=== PATIENT | female | born 1945 | race Caucasian/White ===

== ENCOUNTER 2019-05-14 14:07 | Outpatient (CLI) | payer MEDICARE, OTHER ==
[2019-05-14 14:49] LABS: CLARITY,URINE CLEAR (Clear); COLOR,URINE YELLOW (Yellow); GLUCOSE, URINE NEGATIVE (Neg); KETONES,URINE NEGATIVE (Neg); LEUKOCYTE ESTERASE ,URINE NEGATIVE (Neg); NITRITES, URINE NEGATIVE (Neg); OCCULT BLOOD,URINE NEGATIVE (Neg); PH,URINE 5.5 (4.8-8.0); PROTEIN,URINE NEGATIVE (Neg); UROBILINOGEN,URINE 0.2 E.U/dL (0.2-1.0)
[2019-05-14 14:53] LABS: UA COLLECTION TYPE CLN CATCH MIDSTREAM
[2019-05-14 14:57] LABS: BASOPHILS # (AUTO) 0.1 X10'3 (0-0.2); EOSINOPHILS # (AUTO) 0.1 X10'3 (0-0.9); EOSINOPHILS % (AUTO) 1.8 % (0-6); HEMATOCRIT 25.3 % (35.0-45.0); HEMOGLOBIN 7.8 g/dl (12.0-16.0); LYMPHOCYTES # (AUTO) 1.7 X10'3 (1.1-4.8); LYMPHOCYTES % (AUTO) 24.2 % (21-51); MEAN CORPUSCULAR HEMOGLOBIN 22.8 PG (27.0-31.0); MEAN CORPUSCULAR HGB CONC 30.7 g/dL (33.0-36.5); MEAN CORPUSCULAR VOLUME 74.3 FL (78-98); MEAN PLATELET VOLUME 7.4 FL (7.4-10.4); MONOCYTES # (AUTO) 0.5 X10'3 (0-0.9); MONOCYTES % (AUTO) 7.2 % (2-12); NEUTROPHILS # (AUTO) 4.6 X10'3 (1.8-7.7); NEUTROPHILS % (AUTO) 65.8 % (42-75); PLATELET COUNT 464 X10'3 (140-440); RED BLOOD COUNT 3.41 X10'6 (4.20-5.60)
[2019-05-14 15:19] LABS: ANISOCYTOSIS 2+; HYPOCHROMASIA 1+; MICROCYTOSIS 1+; PLATELET ESTIMATE INCREASED
== END 2019-05-14 23:59 | disposition home or self-care (01) ==
LOC: LAB 14:07
PROVIDERS: ATTEND Family Medicine
DX: D50.8 Other iron deficiency anemias (principal); R53.83 Other fatigue; Z76.89 Persons encountering health services in other specified circumstances; Z87.891 Personal history of nicotine dependence
CPT/HCPCS: 36415; 81003; 84439; 84443; 85025

== ENCOUNTER 2021-08-12 06:17 | Inpatient (IN) | payer MEDICARE, OTHER ==
[2021-08-05 14:55] LABS: BASOPHILS % (AUTO) 0.8 % (0-1); EOSINOPHILS # (AUTO) 0.1 X10'3 (0-0.9); EOSINOPHILS % (AUTO) 1.8 % (0-6); LYMPHOCYTES # (AUTO) 1.8 X10'3 (1.1-4.8); LYMPHOCYTES % (AUTO) 28.9 % (21-51); MEAN CORPUSCULAR HEMOGLOBIN 25.2 PG (27.0-31.0); MEAN CORPUSCULAR HGB CONC 32.4 g/dL (33.0-36.5); MEAN CORPUSCULAR VOLUME 77.7 FL (78-98); MEAN PLATELET VOLUME 6.9 FL (7.4-10.4); MONOCYTES # (AUTO) 0.5 X10'3 (0-0.9); MONOCYTES % (AUTO) 8.8 % (2-12); NEUTROPHILS # (AUTO) 3.7 X10'3 (1.8-7.7); NEUTROPHILS % (AUTO) 59.7 % (42-75); PRE OP HEMATOCRIT 29.9 % (35.0-45.0); PRE OP PLATELET COUNT 425 X10'3 (140-440); RED BLOOD COUNT 3.84 X10'6 (4.20-5.60); RED CELL DISTRIBUTION WIDTH 20.2 % (11.5-14.5)
[2021-08-05 14:56] LABS: CLARITY,URINE CLEAR (Clear); COLOR,URINE YELLOW (Yellow); GLUCOSE, URINE NEGATIVE (Neg); KETONES,URINE NEGATIVE (Neg); LEUKOCYTE ESTERASE ,URINE NEGATIVE (Neg); NITRITES, URINE NEGATIVE (Neg); OCCULT BLOOD,URINE NEGATIVE (Neg); PROTEIN,URINE NEGATIVE (Neg); UA COLLECTION TYPE CLN CATCH MIDSTREAM; UROBILINOGEN,URINE 0.2 E.U/dL (0.2-1.0)
[2021-08-05 14:59] LABS: PRE OP HEMOGLOBIN 9.7 g/dL (12.0-16.0)
[2021-08-05 15:06] LABS: ALBUMIN 3.8 G/DL (3.4-5.0); ALBUMIN/GLOBULIN RATIO 1.1 (1.1-1.5); ALKALINE PHOSPHATASE 92 IU/L (46-116); BLOOD UREA NITROGEN 14 MG/DL (7-18); BUN/CREATININE RATIO 15.7 (6.6-38.0); CALCIUM 9.8 MG/DL (8.5-10.1); CHLORIDE 105 MMOL/L (99-107); CREATININE 0.89 MG/DL (0.40-0.90); PRE OP ALT 17 U/L (30-65); PRE OP ANION GAP 4 (8-16); PRE OP AST 15 U/L (10-37); PRE OP BILIRUB, TOTAL 0.3 MG/DL (0.0-1.0); PRE OP GLUCOSE 92 MG/DL (70-104); PRE OP SODIUM 136 MMOL/L (135-145); TOTAL CARBON DIOXIDE 26.9 MMOL/L (24-32); TOTAL PROTEIN 7.3 G/DL (6.4-8.2); eGFR 61 ML/MIN
[2021-08-05 15:13] LABS: ANISOCYTOSIS 3+; HYPOCHROMASIA 1+; MICROCYTOSIS 1+; PLATELET ESTIMATE NORMAL; TEAR DROP CELLS FEW
[2021-08-05 15:14] LABS: ELLIPTOCYTES 1+
[2021-08-12] VITALS (20 sets, daily range): BP systolic 93–135; BP diastolic 42–105
[~2021-08-12] VITALS: Ht 144.8 cm; Wt 59.0 kg
[~2021-08-12 06:17] MED LIST: AMLO5TAB PO; BACL10TA PO; ESCI20TA39 PO; HYDR-3972 PO; LEVO88TA7 PO; LOSA100T57 PO; cefazolin/dext.iso 2gm/50ml IV ONE; famotidine 20mg tablet PO ONE
[2021-08-12] MEDS: ringers solution, lacted 1,000 ML IV SCH ×2 (07:27→23:52)
[2021-08-12] MEDS ORDERED: ASPI-1397 PO (07:37)
[2021-08-12] MEDS ORDERED: CEPH-585 PO (07:37)
[2021-08-12] MEDS ORDERED: ERGO500093 PO (07:37)
[2021-08-12] MEDS ORDERED: morphine 2 MG/ML inj. syringe IV PRN (10:05)
[2021-08-12] MEDS ORDERED: morphine 4 MG/ML inj SYRINge IV PRN (10:05)
[2021-08-12] MEDS ORDERED: proCHLORperazine 10 MG/2 ml inj IV PRN (10:05)
[2021-08-12] MEDS ORDERED: ondansetron/PF 4mg/2ml inj IV PRN ×2 (10:05→12:10)
[2021-08-12] MEDS ORDERED: meperidine/PF 25mg/ml syringe IV PRN ×3 (10:05)
[2021-08-12] MEDS ORDERED: ringers solution, lacted 1,000 ML IV SCH (10:05)
[2021-08-12] MEDS ORDERED: bacitracin 15gm ointment TP ONE (10:39)
[2021-08-12] MEDS ORDERED: fentaNYL/PF 50MCG/1 ML 2ML syringe ONE (10:41)
[2021-08-12] MEDS ORDERED: MIDAZolam 1 MG/ML 5ML VIAL ONE (10:41)
[2021-08-12] MEDS ORDERED: ROPIVAcaine 0.5% (5mg/ml) 30ml vial ONE (12:02)
[2021-08-12] MEDS ORDERED: diphenhydrAMINE 25mg capsule PO PRN (12:10)
[2021-08-12] MEDS ORDERED: magnesium hydroxide 30ml (MOM) UD suspension PO PRN (12:10)
[2021-08-12] MEDS ORDERED: mag hydrox/Alum hydrox/simeth 30ml oral suspension PO PRN (12:10)
[2021-08-12] MEDS ORDERED: acetaminophen 325mg tablet PO PRN (12:10)
--- NOTE | 2021-08-12 12:37 | NUR ---
Received from OR via [facility] , accompanied by Anesthesiologist KAVITA and report given by Anesthesiolgist. PATIENT WITH 20GPIV IN RIGHT HAND. PATIENT WITH RIGHT FOOT IN BRACE THAT IS CDI. + CAP REFILL TO TOES. ALL PWD, SENSATION LEVEL L2 FOR RIGHT LEG AND T 10 TO LEFT SIDE. Addendum: 08/12/21 at 1251 by Joec Foley RN, RN Amended: Links added.
[2021-08-12] MEDS ORDERED: HYDROcodone/acetaminophen 10/325mg tab PO PRN (13:45)
[2021-08-12] MEDS ORDERED: ergocalciferol (vit D2) capsule 50,000 UNITS (1,250mcg) CAPSULE PO SCH (13:45)
--- NOTE | 2021-08-12 13:47 | NUR ---
MD WALLS CALLED 2' EXTREME RESTLESS LEG ACCORDING TO PATIENT . PATIENT GYRATING AND SHAKING BLE'S DESPITE SPINAL ANESTHESIA. PATIENT STATES THAT THIS IS NORMAL FOR HER. VERBAL ORDERS FOR MIRAPEX RECEIVED FROM MD WALLS. Addendum: 08/12/21 at 1351 by Joce Foley RN, RN Amended: Links added.
--- NOTE | 2021-08-12 14:17 | NUR ---
TRANSFER: DRESSINGS INTACT. BED LOW, CALL LIGHT PRESENT AND 2 RAILS UP. RN PRESENT TO ACCEPT CARE OF PATIENT HAS MET ALL CRITERIA FOR TRANSFER TO THE SURGICAL/[facility]/PCU/ORTHO/ICU FLOOR. VSS. PATIENT AND REPORT HAS BEEN CALLED. ALL QUESTIONS ANSWERED TO ACCEPTING HUEY AGUILLON RN WHOM WAS PRESENT TO ACCEPT CARE OF PATIENT. 2 PERSON PASSIVE TRANSFER TO BED FROM [facility]. Addendum: 08/12/21 at 1450 by Joce Foley RN RN Amended: Links added.
--- NOTE | 2021-08-12 14:23 | NUR ---
I have received report from HUEY Hobson in recovery and had the opportunity to ask questions and assume patient care.
[2021-08-12] MEDS: cephalexin 500mg capsule PO SCH ×2 (17:01→20:07)
[2021-08-12] MEDS: HYDROcodone/acetaminophen 10/325mg tab PO PRN (17:01)
--- NOTE | 2021-08-12 18:44 | NUR ---
Problems reprioritized. Patient report given, questions answered & plan of care reviewed with HUEY Baugh.
[2021-08-12] MEDS ORDERED: potassium Cl 20 mEq SR tablet PO PRN ×2 (18:55)
[2021-08-12] MEDS ORDERED: magnesium 4gm in 100ml NS 100 ML IV PRN (18:55)
[2021-08-12] MEDS ORDERED: potassium Cl 40MEQ/1/2NS 520ml 520 ML IV PRN (18:55)
[2021-08-12] MEDS ORDERED: magnesium Cl slow-release 64mg tablet PO PRN (18:55)
[2021-08-12] MEDS: K and/or MAG REPLACEMENT MC SCH (20:00)
[2021-08-12] MEDS: docusate sod 100mg capsule PO SCH (20:07)
[2021-08-12] MEDS: pramipexole 1mg tablet PO SCH (20:07)
[2021-08-12] MEDS: baclofen 10mg tablet PO SCH (20:07)
[2021-08-12] MEDS: sodium ferric gluc complex inj 125 MG in normal saline 100ml IV soln 100 ML IV SCH (20:08)
[2021-08-13] VITALS: BP 120/79
[2021-08-13] MEDS: HYDROcodone/acetaminophen 10/325mg tab PO PRN ×5 (01:52→23:11)
[2021-08-13 06:09] LABS: BASOPHILS % (AUTO) 0.2 % (0-1); EOSINOPHILS % (AUTO) 0 % (0-6); HEMATOCRIT 26.4 % (35.0-45.0); HEMOGLOBIN 8.7 g/dl (12.0-16.0); LYMPHOCYTES # (AUTO) 1.1 X10'3 (1.1-4.8); LYMPHOCYTES % (AUTO) 13.6 % (21-51); MEAN CORPUSCULAR HEMOGLOBIN 25.5 PG (27.0-31.0); MEAN CORPUSCULAR HGB CONC 32.9 g/dL (33.0-36.5); MEAN CORPUSCULAR VOLUME 77.8 FL (78-98); MONOCYTES # (AUTO) 0.6 X10'3 (0-0.9); MONOCYTES % (AUTO) 7.8 % (2-12); NEUTROPHILS # (AUTO) 6.1 X10'3 (1.8-7.7); NEUTROPHILS % (AUTO) 78.4 % (42-75); PLATELET COUNT 438 X10'3 (140-440); RED BLOOD COUNT 3.39 X10'6 (4.20-5.60); RED CELL DISTRIBUTION WIDTH 19.8 % (11.5-14.5); WHITE BLOOD COUNT 7.8 X10'3 (4.5-11.0)
[2021-08-13 06:19] LABS: ALANINE AMINOTRANSFERASE 17 U/L (12-78); ALBUMIN 3.2 G/DL (3.4-5.0); ALKALINE PHOSPHATASE 93 IU/L (46-116); ANION GAP 9 (8-16); ASPARTATE AMINO TRANSFERASE 13 U/L (10-37); BILIRUBIN,TOTAL 0.3 MG/DL (0.1-1.0); BLOOD UREA NITROGEN 13 MG/DL (7-18); BUN/CREATININE RATIO 16.3 (6.6-38.0); C-REACTIVE PROTEIN 1.24 MG/DL (0.0-0.5); CALCIUM 9.6 MG/DL (8.5-10.1); CHLORIDE 109 MMOL/L (99-107); GLUCOSE 114 MG/DL (70-104); LACTATE DEHYDROGENASE 122 U/L (81-234); MAGNESIUM 2.2 MG/DL (1.5-2.4); POTASSIUM 3.9 MMOL/L (3.5-5.1); SODIUM 143 MMOL/L (135-145); TOTAL CARBON DIOXIDE 25.3 MMOL/L (24-32); TOTAL PROTEIN 6.4 G/DL (6.4-8.2); eGFR 69 ML/MIN
--- NOTE | 2021-08-13 06:28 | NUR ---
pt resting in bed. no distress noted. pt up to bsc to void overnight. pt given norco for pain relief. pt has sensation and movement and brisk cap refill to r foot.
[2021-08-13 07:00] VITALS: BP 160/70
[2021-08-13 07:42] LABS: PLATELET ESTIMATE NORMAL
[2021-08-13 07:43] LABS: ANISOCYTOSIS 2+; ELLIPTOCYTES 1+; HYPOCHROMASIA 1+; MICROCYTOSIS 1+; POLYCHROMASIA 1+
[2021-08-13] MEDS: K and/or MAG REPLACEMENT MC SCH ×2 (08:00→20:00)
[2021-08-13] MEDS: ESCITALOPRAM OXALATE 5 MG TABLET PO SCH (08:07)
[2021-08-13] MEDS: docusate sod 100mg capsule PO SCH ×2 (08:07→20:10)
[2021-08-13] MEDS: cephalexin 500mg capsule PO SCH ×4 (08:08→20:10)
[2021-08-13] MEDS: losartan 50mg tablet PO SCH (08:08)
[2021-08-13] MEDS: baclofen 10mg tablet PO SCH ×2 (08:08→20:10)
[2021-08-13] MEDS: aspirin 81mg, enteric-coated 1 TAB TABLET.DR PO SCH (08:08)
[2021-08-13] MEDS: amLODIPine 5mg tablet PO SCH (08:08)
[2021-08-13] MEDS: levoTHYROXINE 88mcg tablet PO SCH (08:09)
[2021-08-13] MEDS: sodium ferric gluc complex inj 125 MG in normal saline 100ml IV soln 100 ML IV SCH (10:03)
[2021-08-13 12:41] LABS: D-DIMER 1.29 MG/L FEU (0-0.50)
--- NOTE | 2021-08-13 18:13 | NUR ---
Problems reprioritized. Patient report given, questions answered & plan of care reviewed with Lupis ARZATE.
[2021-08-13 20:00] VITALS: BP 119/44
[2021-08-13 20:10] VITALS: BP 132/70
[2021-08-13] MEDS: pramipexole 1mg tablet PO SCH (20:10)
[2021-08-14] VITALS: BP 142/61
[2021-08-14] MEDS: HYDROcodone/acetaminophen 10/325mg tab PO PRN ×3 (04:21→12:35)
--- NOTE | 2021-08-14 06:56 | NUR ---
Patient in room [facility]. I have received report from HUEY Baugh and had the opportunity to ask questions and assume patient care.
[2021-08-14 07:29] LABS: BASOPHILS % (AUTO) 0.5 % (0-1); EOSINOPHILS # (AUTO) 0.2 X10'3 (0-0.9); EOSINOPHILS % (AUTO) 2.9 % (0-6); HEMATOCRIT 26.7 % (35.0-45.0); HEMOGLOBIN 8.6 g/dl (12.0-16.0); LYMPHOCYTES % (AUTO) 34.1 % (21-51); MEAN CORPUSCULAR HEMOGLOBIN 25.3 PG (27.0-31.0); MEAN CORPUSCULAR HGB CONC 32.2 g/dL (33.0-36.5); MEAN CORPUSCULAR VOLUME 78.7 FL (78-98); MEAN PLATELET VOLUME 7.3 FL (7.4-10.4); MONOCYTES # (AUTO) 0.6 X10'3 (0-0.9); MONOCYTES % (AUTO) 10.8 % (2-12); NEUTROPHILS # (AUTO) 3.1 X10'3 (1.8-7.7); NEUTROPHILS % (AUTO) 51.7 % (42-75); PLATELET COUNT 424 X10'3 (140-440); RED BLOOD COUNT 3.39 X10'6 (4.20-5.60); RED CELL DISTRIBUTION WIDTH 20.1 % (11.5-14.5); WHITE BLOOD COUNT 5.9 X10'3 (4.5-11.0)
[2021-08-14 07:41] VITALS: BP 145/70
[2021-08-14 07:45] LABS: ALANINE AMINOTRANSFERASE 12 U/L (12-78); ALKALINE PHOSPHATASE 88 IU/L (46-116); ANION GAP 6 (8-16); ASPARTATE AMINO TRANSFERASE 10 U/L (10-37); BILIRUBIN,TOTAL 0.2 MG/DL (0.1-1.0); BLOOD UREA NITROGEN 13 MG/DL (7-18); BUN/CREATININE RATIO 15.7 (6.6-38.0); CALCIUM 9.3 MG/DL (8.5-10.1); CHLORIDE 110 MMOL/L (99-107); CREATININE 0.83 MG/DL (0.40-0.90); GLUCOSE 80 MG/DL (70-104); MAGNESIUM 2.2 MG/DL (1.5-2.4); PHOSPHORUS 2.9 MG/DL (2.3-4.5); POTASSIUM 3.8 MMOL/L (3.5-5.1); SODIUM 143 MMOL/L (135-145); TOTAL CARBON DIOXIDE 26.8 MMOL/L (24-32); TOTAL PROTEIN 6.1 G/DL (6.4-8.2); eGFR 66 ML/MIN
[2021-08-14] MEDS: K and/or MAG REPLACEMENT MC SCH (08:00)
[2021-08-14] MEDS: ESCITALOPRAM OXALATE 5 MG TABLET PO SCH (08:20)
[2021-08-14] MEDS: cephalexin 500mg capsule PO SCH ×2 (08:20→12:34)
[2021-08-14] MEDS: aspirin 81mg, enteric-coated 1 TAB TABLET.DR PO SCH (08:22)
[2021-08-14] MEDS: losartan 50mg tablet PO SCH (08:22)
[2021-08-14] MEDS: baclofen 10mg tablet PO SCH (08:22)
[2021-08-14] MEDS: amLODIPine 5mg tablet PO SCH (08:22)
[2021-08-14] MEDS: levoTHYROXINE 88mcg tablet PO SCH (08:22)
[2021-08-14] MEDS: docusate sod 100mg capsule PO SCH (08:27)
--- NOTE | 2021-08-14 09:06 | NUR ---
Pt has Ferrlicit scheduled at 0800 medication. Medication not stocked, paged pharmacy and will administer once stocked.
[2021-08-14 09:22] LABS: ANISOCYTOSIS 3+; PLATELET ESTIMATE NORMAL
[2021-08-14 09:30] LABS: ELLIPTOCYTES 1+; HYPOCHROMASIA 1+; MICROCYTOSIS 1+; POLYCHROMASIA 1+
[2021-08-14] MEDS: sodium ferric gluc complex inj 125 MG in normal saline 100ml IV soln 100 ML IV SCH (10:11)
[2021-08-14 12:52] VITALS: BP 181/103
--- NOTE | 2021-08-14 13:18 | NUR ---
PAGER ID: [phone] MESSAGE: Pt 354A Fatemeh S has BP of 185/95. Pt received Cozaar and Norvasc at 0800. Has hx of HTN. HUEY Michelle [phone]
[2021-08-14] MEDS ORDERED: cloNIDine 0.1 mg tablet PO ONE (13:20)
[2021-08-14 14:47] VITALS: BP 135/85
--- NOTE | 2021-08-14 15:00 | NUR ---
Attempted twice to call [facility] to give report for pt transfer. Sound Engineer stated that she would have HUEY Tolentino call back.
--- NOTE | 2021-08-14 15:14 | NUR ---
Student documentation: I have reviewed and agree with all interventions, assessments performed and documented by SN Sobeida. Student Medication Administration: For this medication-pass time frame, all medication were reviewed, dispensed, administered and documented per hospital policy by SN Sobeida.
--- NOTE | 2021-08-14 15:15 | NUR ---
Problems reprioritized. Patient report given to HUEY Tolentino at [facility], questions answered & plan of care reviewed with .
--- NOTE | 2021-08-14 16:23 | NUR ---
Pt discharged and transported to [facility] via [employer]. Pt alert, oriented and stable. Discharge instructions/teaching done with pt's verbal understanding. All pt belongings sent with pt.
== END 2021-08-14 16:15 | DRG 494 ==
LOC: PAS 06:17 → SUR 3N 14:41 → UNDOADMOB 14:42 → INTOOBSV 08-13 13:17 → OBSVTOIN 08-13 13:17 → UNDODISIN 08-14 16:15
PROVIDERS: ADMIT Podiatrist Foot & Ankle Surgery; ATTEND Podiatrist Foot & Ankle Surgery
PROC: 3E0T3BZ Introduction of Anesthetic Agent into Peripheral Nerves and Plexi, Percutaneous Approach (ICD-10-PCS; 2021-08-12)
PROC: 3E0T33Z Introduction of Anti-inflammatory into Peripheral Nerves and Plexi, Percutaneous Approach (ICD-10-PCS; 2021-08-12)
PROC: 0QSJ04Z Reposition Right Fibula with Internal Fixation Device, Open Approach (ICD-10-PCS; principal; 2021-08-12 10:42)
DX: S82.841A Displaced bimalleolar fracture of right lower leg, initial encounter for closed fracture (principal); D50.9 Iron deficiency anemia, unspecified; E03.9 Hypothyroidism, unspecified; G25.81 Restless legs syndrome; Z96.643 Presence of artificial hip joint, bilateral; Z96.653 Presence of artificial knee joint, bilateral; F32.A Depression, unspecified; G89.4 Chronic pain syndrome; Z60.2 Problems related to living alone; W01.0XXA Fall on same level from slipping, tripping and stumbling without subsequent striking against object, initial encounter; I10 Essential (primary) hypertension; M81.0 Age-related osteoporosis without current pathological fracture; Z79.82 Long term (current) use of aspirin; Z79.890 Hormone replacement therapy; Z79.899 Other long term (current) drug therapy; Z82.49 Family history of ischemic heart disease and other diseases of the circulatory system; Z87.891 Personal history of nicotine dependence; Y93.89 Activity, other specified; Y92.89 Other specified places as the place of occurrence of the external cause; Y99.8 Other external cause status
CPT/HCPCS: 36415; 73600; 76000; 80053; 81003; 82948; 83615; 83735; 84100; 84145; 84443; 85008; 85025; 85379; 86140; 87081; 93005; 97116; 97161; 97530; A4215; A4615; A4618; A6223; A6253; A6449; A7000; C1713; G0378; J2250; J2795; J2916; J3010; J7120; U0003; U0005